=== PATIENT | female | born 1950 | race Caucasian/White ===

== ENCOUNTER 2021-11-09 17:55 | Emergency (ER) | payer MEDICARE, OTHER ==
[2021-11-09 18:17] LABS: BASOPHILS % (AUTO) 0.2 %; EOSINOPHILS # (AUTO) 0.1 10^3/uL (0.0-0.7); EOSINOPHILS % (AUTO) 1.2 %; HCT - HEMATOCRIT 37.2 % (37.0-47.0); HGB - HEMOGLOBIN 11.3 g/dL (12.0-16.0); LYMPHOCYTES # (AUTO) 2.2 10^3/uL (1.5-3.5); LYMPHOCYTES % (AUTO) 22.6 %; MEAN CORPUSCULAR HEMOGLOBIN 19.4 pg (27.0-31.0); MEAN CORPUSCULAR HGB CONC 30.4 g/dL (32.0-36.0); MEAN CORPUSCULAR VOLUME 63.9 fL (81.0-99.0); MEAN PLATELET VOLUME 10.1 fL (7.9-10.8); MONOCYTES # (AUTO) 0.8 10^3/uL (0.0-1.0); MONOCYTES % (AUTO) 8.6 %; NEUTROPHILS # (AUTO) 6.5 10^3/uL (1.5-6.6); NEUTROPHILS % (AUTO) 67.2 %; PLT - PLATELET COUNT 185 10^3/uL (130-450); RED BLOOD COUNT 5.82 10^6/uL (4.20-5.40); RED CELL DISTRIBUTION WIDTH 16.2 % (12.0-15.0); WHITE BLOOD COUNT 9.7 x10^3/uL (4.8-10.8)
[2021-11-09 18:18] LABS: SLIDE REVIEW? Indicated
[2021-11-09 18:29] LABS: ALBUMIN 4.2 g/dL (3.2-5.5); ALBUMIN/GLOBULIN RATIO 1.4 (1.0-2.2); BILIRUBIN,TOTAL 1.2 mg/dL (0.2-1.0); POTASSIUM 3.8 mmol/L (3.5-5.0); TOTAL PROTEIN 7.1 g/dL (6.7-8.2)
--- NOTE | 2021-11-09 18:40 | ED Physician Documentation ---
PD HPI ABD PAIN - Stated complaint Stated Complaint: ABD PX - Chief complaint Chief Complaint: Abd Pain - History obtained from History obtained from: Patient - Additional information Additional information: 71-year-old woman with no history of abdominal surgeries. Last colonoscopy was about 15 years ago. She developed left lower quadrant pain gradually today. It became quite severe at 1 point and got worse with walking. She was having diarrhea for a few days but now feels more constipated. No associated nausea or fevers. This is not something she never had before. Pain is mild to moderate at this juncture and declines pain medication. She went to the walk-in clinic prior to arrival and was referred here for further evaluation and treatment noting that she was quite tender. Review of Systems Ten Systems: 10 systems reviewed and negative Constitutional: reports: Reviewed and negative Eyes: reports: Reviewed and negative Nose: reports: Reviewed and negative Cardiac: reports: Reviewed and negative Respiratory: reports: Reviewed and negative PD PAST MEDICAL HISTORY - Present Medications Home Medications: Ambulatory Orders Medication Instructions Recorded Confirmed Amox/Clav 875/125 [Augmentin] 1 each PO TID #30 tablet 11/09/21 Cyanocobalamin (Vitamin B-12) 5,000 mcg PO DAILY 11/09/21 11/09/21 [Vitamin B12] FLUoxetine [PROzac] 10 mg PO DAILY 11/09/21 11/09/21 Ferrous Sulfate [Feosol] 325 mg PO DAILY 11/09/21 11/09/21 Levothyroxine Sodium [Synthroid] 75 mcg PO DAILY 11/09/21 11/09/21 - Allergies Allergies/Adverse Reactions: Allergies Allergy/AdvReac Type Severity Reaction Status Date / Time No Known Drug Allergies Allergy Verified 11/09/21 18:01 PD ED PE NORMAL - Vitals Vital signs reviewed: Yes - General General: Alert and oriented X 3, No acute distress - HEENT HEENT: PERRL, EOMI - Neck Neck: Supple, no meningeal sign, No bony TTP - Cardiac Cardiac: RRR, No murmur - Respiratory Respiratory: No respiratory distress, Clear bilaterally - Abdomen Abdomen: Other (Soft with hyperactive bowel sounds, focally tender in the left lower quadrant without surgical signs.) - Back Back: No CVA TTP, No spinal TTP - Derm Derm: Normal color, Warm and dry - Extremities Extremities: No edema, No calf tenderness / cord - Neuro Neuro: Alert and oriented X 3, Normal speech Results - Vitals Vitals: Vital Signs - 24 hr 11/09/21 11/09/21 18:01 19:10 Temperature 36.5 C Heart Rate 76 80 Respiratory 16 16 Rate Blood Pressure 142/76 H 118/57 L O2 Saturation 99 96 Oxygen O2 Source Room air - Labs Labs: Laboratory Tests 11/09/21 11/09/21 11/09/21 18:11 18:11 19:18 WBC 9.7 RBC 5.82 H Hgb 11.3 L Hct 37.2 MCV 63.9 L MCH 19.4 L MCHC 30.4 L RDW 16.2 H Plt Count 185 MPV 10.1 Neut # (Auto) 6.5 Lymph # (Auto) 2.2 [place] # (Auto) 0.8 Eos # (Auto) 0.1 Baso # (Auto) 0.0 Absolute Nucleated RBC 0.00 Nucleated RBC % 0.0 Manual Slide Review Indicated Platelet Estimate NORMAL (130-450,000) Platelet Morphology NORMAL APPEARANCE RBC Morph Micro Appear 1+ MICROCYTOSIS Sodium 137 Potassium 3.8 Chloride 101 Carbon Dioxide 30 Anion Gap 6.0 BUN 16 Creatinine 1.0 Estimated GFR (MDRD) 54 L Glucose 100 Calcium 9.0 Total Bilirubin 1.2 H AST 23 ALT 27 Alkaline Phosphatase 46 Total Protein 7.1 Albumin 4.2 Globulin 2.9 Albumin/Globulin Ratio 1.4 Lipase 28 Urine Color YELLOW Urine Clarity CLEAR Urine pH 6.0 Ur Specific [place] <=1.005 Urine Protein NEGATIVE Urine Glucose (UA) NEGATIVE Urine Ketones NEGATIVE Urine Occult Blood TRACE-INTA Urine Nitrite NEGATIVE Urine Bilirubin NEGATIVE Urine Urobilinogen 1 (NORMAL) Ur Leukocyte Esterase NEGATIVE Ur Microscopic Review NOT INDICATED Urine Culture Comments NOT INDICATED PD MEDICAL DECISION MAKING - ED course ED course: This is a 71-year-old woman who presents with first episode of diverticulitis proven on CT. There is no complication such as abscess. We discussed the need for follow-up colonoscopy and she actually already has one scheduled. We discussed the diagnosis and treatment options including current AGA guidelines and she would like a [id number] prescription for antibiotics but will try bowel rest first. Departure - Departure Disposition: 01 Home, Self Care Clinical Impression: Diverticulitis of gastrointestinal tract Condition: Good Record reviewed to determine appropriate education?: Yes Instructions: ED Diverticulitis, Diet Low Residue Prescriptions: Amox/Clav 875/125 [Augmentin] 1 each PO TID #30 tablet Comments: I am writing a [id number] prescription for antibiotics, he can start them in the next couple days if not improving. For the next 24 hours do a clear liquid diet, then a low residue diet for another 24 hours. You should keep the appoin tment for the colonoscopy you have scheduled in late December. Return if you worsen. Follow-up with your primary care physician, next available appointment
[2021-11-09 18:51] LABS: PLATELET ESTIMATE, MANUAL NORMAL (130-450,000) (NORMAL); PLATELET MORPHOLOGY NORMAL APPEARANCE (NORMAL)
[2021-11-09 19:11] VITALS: BP 118/57
--- NOTE | 2021-11-09 19:21 | CT Report ---
PROCEDURE: Abdomen/Pelvis W INDICATIONS: LLQ pain IV only CONTRAST: IV CONTRAST: Optiray 320 ml: 100 PO CONTRAST: *NO PO CONTRAST TECHNIQUE: After the administration of contrast, 5 mm thick sections acquired from the diaphragms to the sym physis. 5 mm thick coronal and sagittal reformats were acquired. For radiation dose reduction, the following was used: automated exposure control, adjustment of mA and/or kV according to patient size . COMPARISON: None. FINDINGS: Image quality: Excellent. ABDOMEN: Lung bases: Lung bases are clear. Heart size is normal. Solid organs: Liver and spleen are normal in size and enhancement. Gallbladder is normal Biliary s ystem is non dilated. Pancreas enhances normally. No adrenal nodules. Kidneys demonstrate normal s ize and enhancement, without hydronephrosis. The left kidney has a 1.5 cm cyst of the midpole anteri gerson. Peritoneum and bowel: The distal esophagus, stomach, and small bowel are normal. The large bowel has diverticulosis of the left colon and sigmoid colon. At the junction of the left colon and sigmoid col on there is surrounding inflammation and wall thickening consistent with acute diverticulitis. No per foration or abscess. No free fluid or air. Nodes and vessels: No retroperitoneal or mesenteric adenopathy by size criteria. Aorta and inferior vena cava are normal in size. Miscellaneous: No ventral hernias. PELVIS: Genitourinary: Bladder wall thickness is normal. Miscellaneous: No inguinal hernias or adenopathy. Bones: No suspicious bony lesions. No vertebral body compression fractures. IMPRESSION: Acute diverticulitis at the junction of the left colon and sigmoid colon with no perfora tion or abscess. Reviewed by: Stefan Wise on 11/09/2021 7:20 PM PDT Approved by: Stefan Wise on 11/09/2021 7:20 PM PDT Station ID: [id number]
[2021-11-09 19:24] LABS: BILIRUBIN,URINE NEGATIVE (NEGATIVE); GLUCOSE, URINE (UA) NEGATIVE (NEGATIVE); KETONES,URINE (UA) NEGATIVE (NEGATIVE); LEUKOCYTE ESTERASE, URINE NEGATIVE (NEGATIVE); NITRITE,URINE NEGATIVE (NEGATIVE); OCCULT BLOOD,URINE TRACE-INTA (NEGATIVE); PROTEIN,URINE NEGATIVE (NEGATIVE); UROBILINOGEN,URINE 1 (NORMAL) E.U./dL (NORMAL)
[2021-11-09 19:25] LABS: CLARITY,URINE CLEAR (CLEAR)
== END 2021-11-09 19:51 | disposition home or self-care (01) ==
LOC: ED 17:55
DX: K57.32 Diverticulitis of large intestine without perforation or abscess without bleeding (principal)
CPT/HCPCS: 36415; 74177; 80053; 81003; 83690; 85025; 99282; 99284; Q9967; 81001; 87086